=== PATIENT | male | born 1930 | race Caucasian/White ===

== ENCOUNTER 2016-07-19 19:44 | Emergency (ER) | payer OTHER ==
[2016-07-19] MEDS ORDERED: SILVER NITRATE APPLICATOR 1 APPL TP ONE (20:00)
[2016-07-19] MEDS ORDERED: OXYMETAZOLINE 30 ML NASAL SPRAY ONE (20:08)
[2016-07-19] MEDS ORDERED: COCAINE HCL 4% 4 ML BTL TP ONE ×2 (20:08→20:13)
[2016-07-19] MEDS ORDERED: OXYMETAZOLINE 30 ML NASAL SPRAY EACHNARE ONE (20:13)
--- NOTE | 2016-07-19 20:17 | EDPHY ---
H & P Time Seen by Provider: 07/19/16 19:56 HPI/ROS: Chief complaint. Nosebleed HPI. 85-year-old male with recurrent nose bleed. He had been having bleeding off and on for about 2 months. He had cauterization by ENT 2 days ago. Bleeding again started just prior to arrival. No trauma. Bleeding is again from the right nose which had been cauterized. Otherwise no chest pain or shortness of breath. Patient is not on blood thinners. He had been taking aspirin but has not taken aspirin now for several days. ROS Constitutional. no fever/chills, no weakness Eyes. no problems with vision ENT. Right nose bleed Cardiovascular. no chest pain Respiratory. no shortness of breath, no cough Abdominal. no abdominal pain, no nausea/vomiting, no diarrhea . no problems urinating MS. no calf pain/swelling, no neck/back pain, no joint pain Skin. no rash Lymph. no swollen glands Neuro. no headache, no dizziness, no difficulty walking or with speech Past Medical/Surgical History: Cholesterol, glaucoma Social History: , nonsmoker, no alcohol Smoking Status: Former smoker Physical Exam: General Appearance: Alert well-developed male actively bleeding moderate distress. Vital signs are stable Eyes: Pupils equal and round no pallor or injection. ENT, active bleeding from right side of nose. Really minimal bleeding down the posterior pharynx . No bleeding from the left side Respiratory: There are no retractions, lungs are clear to auscultation. Cardiovascular: Regular rate and rhythm. Gastrointestinal: Abdomen is soft and nontender, no masses, bowel sounds normal. Neurological: Awake and alert, sensory and motor exams grossly normal. Skin: Warm and dry, no rashes. Musculoskeletal: Neck is supple nontender. Extremities symmetrical, full range of motion. Psychiatric: Patient is oriented X 3, there is no agitation. Constitutional: Initial Vital Signs Temperature (C) 36.4 C 07/19/16 19:51 Heart Rate 75 07/19/16 19:51 Respiratory Rate 18 07/19/16 19:51 Blood Pressure 192/91 H 07/19/16 19:51 O2 Sat (%) 96 07/19/16 19:51 O2 Delivery Mode Room Air Allergies/Adverse Reactions: No Known Allergies Allergy (Verified 10/25/15 09:19) Home Medications: Medication Instructions Recorded Vitorin 08/13/09 Chlorthalidone 25 mg 10/24/15 Fish Oil 10/24/15 Lansoprazole 30 mg 10/24/15 Durezol 07/19/16 Ketorolac 0.5% 07/19/16 Medical Decision Making Procedures: Clots were cleared from the nose with patient blowing. 2 sprays of Afrin nose spray to each nostril. The right nose is packed with cocaine solution soaked on cotton ball. Cotton ball was removed after 15 minutes. Bleeding resumes. I am unable to see source of the bleeding. A 4.5 cm rhino rocket is inserted and inflated with 3 males of saline. There is still blood dribbling from the right nares. IV normal saline. Fentanyl for pain. ED Course/Re-evaluation: On re-evaluation the patient has accidentally removed the rhino rocket with rubbing his nose. It is replaced with a 5.5 cm rhino rocket and inflated with 5 cc. Again the patient rubs the rhino rocket out. I replaced with a 7.5 cm rhino rocket and inflated it with 9 mls of saline. It is taped above his nose so he can't accidentally rub it out. He is given fentanyl 50 mcg for pain. Re-evaluation 10:45 p.m.--minimal bleeding at this point the occasional bruising. No blood from left nostril. No blood from the back of his throat I have discussed with patient and his whether they feel that she he can go home tonight. They [place] by the hospital I did consult and discussed case with ENT PA who recommends the longer rhino rocket and 10 mL of saline which I have now done Recheck again at 11:05 p.m.. There is no bleeding now. Patient and his were comfortable going home. We discussed treatment plan, criteria for return, importance of follow-up on Thursday morning. They expressed understanding and agreement Differential Diagnosis: I considered anterior versus posterior epistaxis. The patient had cauterization 2 days ago. I do not see a septal hematoma. It appears that the bleeding is anterior as a long 7.5 cm rhino rocket has controlled the bleeding. He no longer has any bleeding down the back of his throat or through the left nostril. There is no respiratory difficulty. - Data Points Laboratory Results: Laboratory Results 07/19/16 20:45 07/19/16 20:45 07/19/16 07/19/16 07/19/16 20:45 20:45 20:45 WBC 8.82 10^3/uL 10^3/uL (3.80-9.50) RBC 4.83 10^6/uL 10^6/uL (4.40-6.38) Hgb 14.8 g/dL g/dL (13.7-17.5) Hct 44.1 % % (40.0-51.0) MCV 91.3 fL fL (81.5-99.8) MCH 30.6 pg pg (27.9-34.1) MCHC 33.6 g/dL g/dL (32.4-36.7) RDW 13.0 % % (11.5-15.2) Plt Count 218 10^3/uL 10^3/uL (150-400) MPV 9.4 fL fL (8.7-11.7) Neut % (Auto) 64.2 % % (39.3-74.2) Lymph % (Auto) 22.0 % % (15.0-45.0) Nelson % (Auto) 11.2 % % (4.5-13.0) Eos % (Auto) 1.9 % % (0.6-7.6) Baso % (Auto) 0.2 % L % (0.3-1.7) Nucleat RBC Rel Count 0.0 % % (0.0-0.2) Absolute Neuts (auto) 5.66 10^3/uL 10^3/uL (1.70-6.50) Absolute Lymphs (auto) 1.94 10^3/uL 10^3/uL (1.00-3.00) Absolute Monos (auto) 0.99 10^3/uL H 10^3/uL (0.30-0.80) Absolute Eos (auto) 0.17 10^3/uL 10^3/uL (0.03-0.40) Absolute Basos (auto) 0.02 10^3/uL 10^3/uL (0.02-0.10) Absolute Nucleated RBC 0.00 10^3/uL 10^3/uL (0-0.01) Immature Gran % 0.5 % % (0.0-1.1) Immature Gran # 0.04 10^3/uL 10^3/uL (0.00-0.10) PT 14.0 SEC SEC (12.0-15.0) INR 1.09 (0.83-1.16) APTT 23.5 SEC SEC (23.0-38.0) Sodium 139 mEq/L mEq/L (134-144) Potassium 4.3 mEq/L mEq/L (3.5-5.2) Chloride 102 mEq/L mEq/L (97-110) Carbon Dioxide 28 mEq/l mEq/l (22-31) Anion Gap 9 mEq/L mEq/L (8-16) BUN 20 mg/dL mg/dL (7-23) Creatinine 1.0 mg/dL mg/dL (0.7-1.3) Estimated GFR > 60 Glucose 110 mg/dL H mg/dL (70-100) Calcium 9.4 mg/dL mg/dL (8.5-10.4) Medications Given: Discontinued Medications Cocaine HCl (Cocaine Hcl) 1 glynn TP EDNOW ONE Stop: 07/19/16 20:14 Last Admin: 07/19/16 20:15 Dose: 1 applic Fentanyl (Sublimaze) 100 mcg IVP EDNOW ONE Stop: 07/19/16 20:34 Last Admin: 07/19/16 20:45 Dose: 100 mcg Fentanyl (Sublimaze) 50 mcg IVP EDNOW ONE Stop: 07/19/16 22:52 Last Admin: 07/19/16 22:30 Dose: 50 mcg Sodium Chloride (Ns) 1,000 mls @ 0 mls/hr IV ONCE ONE PRN Reason: Wide Open Stop: 07/19/16 20:34 Last Admin: 07/19/16 20:45 Dose: 1,000 mls Oxymetazoline HCl (Afrin Nasal [place]) 2 sprays EACHNARE EDNOW ONE Stop: 07/19/16 20:14 Last Admin: 07/19/16 20:14 Dose: 2 spray Departure - Departure Disposition: Home, Routine, Self-Care Clinical Impression: Acute anterior epistaxis Condition: Good Instructions: Nosebleed (ED) Additional Instructions: Easy activity and caution with bending over as this increases pressure on your nose and may cause it began bleeding again. If bleeding starts again use the clipped that we are giving you to clip on your nose. Return for uncontrolled bleeding. Call Dr. Chavez is office on Thursday morning for re-evaluation and leave the packing in your nose until you see Dr. Chavez. Do not take aspirin until after seeing Dr. Chavez. Referrals: Mitchell Campos MD [Primary Care Provider] - As per Instructions Alison Chavez MD [Medical Doctor] - 1-2 days without fail
[2016-07-19] MEDS ORDERED: NS 1,000 ML IV ONE (20:33)
[2016-07-19] MEDS ORDERED: fentaNYL 100 MCG/2 ML INJ IVP ONE ×2 (20:33→22:51)
[2016-07-19 21:04] LABS: % IMMATURE GRANULYOCYTES 0.5 % (0.0-1.1); ABSOLUTE IMMATURE GRANULOCYTES 0.04 10^3/uL (0.00-0.10); ADD DIFF? NO; ADD MORPH? NO; ADD SCAN? NO; ATYPICAL LYMPHOCYTE FLAG 0 (0-99); FRAGMENT RBC FLAG 0 (0-99); HEMATOCRIT 44.1 % (40.0-51.0); HEMOGLOBIN 14.8 g/dL (13.7-17.5); LEFT SHIFT FLG 0 (0-99); LIPEMIA HEMOLYSIS FLAG 80 (0-99); MEAN CELL HEMOGLOBIN 30.6 pg (27.9-34.1); MEAN CELL HEMOGLOBIN CONCENTR. 33.6 g/dL (32.4-36.7); MEAN CELL VOLUME 91.3 fL (81.5-99.8); MEAN PLATELET VOLUME 9.4 fL (8.7-11.7); PLATELET CLUMPS FLAG 0 (0-99); PLATELET COUNT 218 10^3/uL (150-400); RED BLOOD CELL COUNT 4.83 10^6/uL (4.40-6.38)
[2016-07-19 21:09] LABS: ANION GAP 9 mEq/L (8-16); CALCIUM 9.4 mg/dL (8.5-10.4); CARBON DIOXIDE 28 mEq/l (22-31); CHLORIDE 102 mEq/L (97-110); GLOMERULAR FILTRATION RATE > 60; GLUCOSE 110 mg/dL (70-100); POTASSIUM 4.3 mEq/L (3.5-5.2); SODIUM 139 mEq/L (134-144)
[2016-07-19 21:11] LABS: APTT 23.5 SEC (23.0-38.0); INR 1.09 (0.83-1.16)
[2016-07-19 22:12] VITALS: O2SAT 91
[2016-07-19] MEDS ORDERED: fentaNYL 100 MCG/2 ML INJ ONE (22:28)
[2016-07-19 23:59] VITALS: BP 151/102; PULSE 66; RESP 16; TEMP 98.2
== END 2016-07-20 00:01 | disposition home or self-care (01) ==
PROC: 2Y41X5Z Packing of Nasal Region using Packing Material (ICD-10-PCS; principal; 2016-07-19)
DX: R04.0 Epistaxis (principal); Z87.891 Personal history of nicotine dependence
CPT/HCPCS: 30903; 96374; 96376; 99284; J3010

== ENCOUNTER 2016-12-05 18:13 | Observation (INO) | payer OTHER ==
--- NOTE | 2016-12-05 18:45 | EDPHY ---
HPI/HX/ROS/PE/MDM Narrative: CHIEF COMPLAINT: AMS HPI: The patient is an 86 y/o male arriving with his at the referral of his PCP for evaluation of acute onset altered mental status this morning around 11:00, about 8 hours ago. He is unable to describe what happened while he was at the office this morning beyond saying he did not "feel well." It sounds like his office coworkers noticed he was acting odd and drove him home. His PCP, Dr. 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 His says he was confused this afternoon and had difficulty speaking, but since returning to his ED room from CT his says he is completely back to normal. He denies acute pain, fever, cough. No cardiac disease history. REVIEW OF SYSTEMS: Aside from elements discussed in the HPI, a comprehensive 10-point review of systems was reviewed and is negative. PMH: Lumbar back pain, cataract surgery 11/18/16 SOCIAL HISTORY: at bedside. 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 PCP: Dr. Campos PHYSICAL EXAM: General:Patient is alert, in no acute distress. ENT:Eyes are normal to inspection. ENT inspection normal. Neck: Normal inspection. Full range of motion. Respiratory:No respiratory distress. Breath sounds normal bilaterally. Cardiovascular: Regular rate and rhythm. Strong peripheral pulses. Normal cap refill. Abdomen:The abdomen is nontender to palpation. There are no peritoneal signs. There are normal bowel sounds. Back: Normal to inspection. No tenderness to palpation. Skin: Normal color. No rash. Warm and dry. Extremities: Normal appearance. Full range of motion. Neuro: Oriented x3. Normal motor function. Normal sensory function. ED Course: IV established. Labs drawn. Head CT and EKG ordered. The 12 lead EKG was interpreted by myself. See hard copy and/or "tracemaster" electronic copy for interpretation. CT Head: 8mm subarachnoid hemorrhage, no corpus callosum. 1932: Consulted with Dr. Campos, neurosurgeon. He will consult during patient's admission. 1936: Spoke with LUIGI West for Dr. Campos, patient's PCP. She will admit patient. - Data Points Imaging: Discussed imaging studies w/ crew caller Radiologist, I viewed and interpreted images myself Laboratory Results: Laboratory Results 12/05/16 19:02 12/05/16 12/05/16 19:02 19:02 WBC 6.63 10^3/uL 10^3/uL (3.80-9.50) RBC 4.78 10^6/uL 10^6/uL (4.40-6.38) Hgb 14.7 g/dL g/dL (13.7-17.5) Hct 43.4 % % (40.0-51.0) MCV 90.8 fL fL (81.5-99.8) MCH 30.8 pg pg (27.9-34.1) MCHC 33.9 g/dL g/dL (32.4-36.7) RDW 13.8 % % (11.5-15.2) Plt Count 185 10^3/uL 10^3/uL (150-400) MPV 9.4 fL fL (8.7-11.7) Neut % (Auto) 54.8 % % (39.3-74.2) Lymph % (Auto) 30.5 % % (15.0-45.0) Baker % (Auto) 12.8 % % (4.5-13.0) Eos % (Auto) 1.2 % % (0.6-7.6) Baso % (Auto) 0.2 % L % (0.3-1.7) Nucleat RBC Rel Count 0.0 % % (0.0-0.2) Absolute Neuts (auto) 3.64 10^3/uL 10^3/uL (1.70-6.50) Absolute Lymphs (auto) 2.02 10^3/uL 10^3/uL (1.00-3.00) Absolute Monos (auto) 0.85 10^3/uL H 10^3/uL (0.30-0.80) Absolute Eos (auto) 0.08 10^3/uL 10^3/uL (0.03-0.40) Absolute Basos (auto) 0.01 10^3/uL L 10^3/uL (0.02-0.10) Absolute Nucleated RBC 0.00 10^3/uL 10^3/uL (0-0.01) Immature Gran % 0.5 % % (0.0-1.1) Immature Gran # 0.03 10^3/uL 10^3/uL (0.00-0.10) Sodium Pending Potassium Pending Chloride Pending Carbon Dioxide Pending Anion Gap Pending BUN Pending Creatinine Pending Estimated GFR Pending Glucose Pending Calcium Pending Total Bilirubin Pending Conjugated Bilirubin Pending Unconjugated Bilirubin Pending AST Pending ALT Pending Alkaline Phosphatase Pending Troponin I Pending Total Protein Pending Albumin Pending General Time Seen by Provider: 12/05/16 18:40 Initial Vital Signs: Initial Vital Signs Temperature (C) 36.9 C 12/05/16 18:27 Heart Rate 61 12/05/16 18:27 Respiratory Rate 15 12/05/16 18:27 Blood Pressure 167/64 H 12/05/16 18:27 O2 Sat (%) 94 12/05/16 18:27 O2 Delivery Mode Room Air Allergies/Adverse Reactions: No Known Allergies Allergy (Verified 10/25/15 09:19) Home Medications: Medication Instructions Recorded Aspirin EC [Aspirin EC 325 mg (*)] 325 mg PO DAILY 12/05/16 Cholecalciferol Vit D3 [Vitamin D3 4,000 units PO DAILY 12/05/16 (*)] Difluprednate [Durezol] 1 drop RTEYE BID 12/05/16 Dorzolamide 2% [Trusopt 2% (*)] 1 drops RTEYE BID 12/05/16 Ezetimibe/Simvastatin [Vytorin 1 each PO DAILY 12/05/16 10-40 mg Tablet] Ketorolac Tromethamine 1 drop RTEYE QID 12/05/16 Multivitamins [Multivitamin (*)] 1 each PO DAILY 12/05/16 [place]-3 Fatty Acids [Fish Oil 1000 1,200 mg PO TID 12/05/16 mg (*)] Departure - Departure Disposition: [facility] Clinical Impression: Subarachnoid hemorrhage Altered mental status Qualifiers: Altered mental status type: unspecified Qualified Code(s): R41.82 - Altered mental status, unspecified Condition: Fair Report Scribed for: Raymon Thomas Report Scribed by: Rosemary Donovan Date of Report: 12/05/16 Time of Report: 18:45
[2016-12-05 19:13] LABS: % IMMATURE GRANULYOCYTES 0.5 % (0.0-1.1); ABSOLUTE IMMATURE GRANULOCYTES 0.03 10^3/uL (0.00-0.10); ADD DIFF? NO; ADD MORPH? NO; ADD SCAN? NO; ATYPICAL LYMPHOCYTE FLAG 20 (0-99); FRAGMENT RBC FLAG 0 (0-99); HEMATOCRIT 43.4 % (40.0-51.0); HEMOGLOBIN 14.7 g/dL (13.7-17.5); LEFT SHIFT FLG 0 (0-99); LIPEMIA HEMOLYSIS FLAG 90 (0-99); MEAN CELL HEMOGLOBIN 30.8 pg (27.9-34.1); MEAN CELL HEMOGLOBIN CONCENTR. 33.9 g/dL (32.4-36.7); MEAN CELL VOLUME 90.8 fL (81.5-99.8); MEAN PLATELET VOLUME 9.4 fL (8.7-11.7); PLATELET CLUMPS FLAG 0 (0-99); PLATELET COUNT 185 10^3/uL (150-400); RED BLOOD CELL COUNT 4.78 10^6/uL (4.40-6.38); RED CELL DISTRIBUTION WIDTH 13.8 % (11.5-15.2)
--- NOTE | 2016-12-05 19:25 | CPEKG ---
Heart Rate: 53 RR Interval: 1132 P-R Interval: 236 QRSD Interval: 80 QT Interval: 452 QTC Interval: 425 P [place]: 16 QRS [place]: 45 T Wave [place]: 49 EKG Severity - ABNORMAL ECG - EKG Impression: SINUS RHYTHM EKG Impression: FIRST DEGREE AV BLOCK EKG Impression: CONSIDER LEFT VENTRICULAR HYPERTROPHY Electronically Signed By: Erasmo Fleming 05-Dec-2016 20:35:31
[2016-12-05 19:30] LABS: ALANINE AMINOTRANSFERASE 34 IU/L (21-72); ALBUMIN 3.7 g/dL (3.5-5.0); ALKALINE PHOSPHATASE 74 IU/L (38-126); ANION GAP 7 mEq/L (8-16); ASPARTATE AMINOTRANSFERASE 30 IU/L (17-59); BILIRUBIN,TOTAL 1.1 mg/dL (0.1-1.4); BILIRUBIN-CONJUGATED 0.2 mg/dL (0.0-0.5); BILIRUBIN-UNCONJUGATED 0.9 mg/dL (0.0-1.1); CALCIUM 9.2 mg/dL (8.5-10.4); CARBON DIOXIDE 27 mEq/l (22-31); CHLORIDE 98 mEq/L (97-110); GLOMERULAR FILTRATION RATE > 60; GLUCOSE 86 mg/dL (70-100); POTASSIUM 4.1 mEq/L (3.5-5.2); SODIUM 132 mEq/L (134-144); TOTAL PROTEIN 6.3 g/dL (6.3-8.2)
[2016-12-05 20:50] VITALS: O2SAT 95
--- NOTE | 2016-12-05 21:11 | GCON ---
[f rep st] CONSULTATION DATE OF CONSULTATION: 12/05/2016 CONSULTING SERVICE: Emergency Medicine. REASON FOR CONSULT: Altered mental status with a right thalamic hyperdensity. 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 He was sent to the [facility], and a noncontrast head CT demonstrated congenital appearing ventriculomegaly and a well-circ umscribed 8 mm hyperdensity in the right thalamus. I evaluated the patient at the bedside with [facility], Dr. Hooper, and he stated that the patient had already improved neurologica lly and from a mental status standpoint, and he plans to admit overnight for observation. PAST MEDICAL HISTORY: Per HPI. Cervical and lumbar stenosis with low back pain, cataract surgery in October of 2016. ALLERGIES: No known drug allergies. HOME MEDICATIONS: Vytorin, fish oil, PPI. 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 Denies alcohol, tobacco , or drug abuse. FAMILY HISTORY: No known history of brain disorder. REVIEW OF SYSTEMS: Ten points were reviewed and negative other than mentioned in HPI. PHYSICAL EXAMINATION: VITALS: Blood pressure 193/80 4/84, heart rate 54, respiratory rate 14, satur ation is 96% on room air, temperature is normal at 37.1 degrees Celsius. LABORATORIES: White blood cell count 6.6, hemoglobin 14.7, platelet count 185. Sodium 132, potassiu m 4.1, BUN and creatinine 15 and 1.0, glucose 86. Calcium normal. LFTs normal. NEUROLOGIC EXAMINATION: Awake, alert, oriented x3. Pleasant and jovial. Fluent normal speech. Nor mal cranial nerves. Nonfocal neurologically with 5/5 strength in upper and lower extremities without a pronator drift. Normal sensory and reflex exam. No cerebellar findings. Good hfjcin-hp-sezp erick aterally. Gait is deferred. 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 There is no transependymal flow. The bra in is midline. There is [id number] global volume loss of the cerebrum. 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 The patient does not have any baseline for comparison brain imaging. 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 His mental status has since improved significantly altho ugh he is not entirely back to baseline. This was somewhat spontaneous. 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 I do not think that either finding is acute. Unfortunately, we have no baseline, but given th e fact the patient has a very reassuring nonfocal and improved neurologic exam, I do not feel strongl y about any repeat imaging at this time. An MRI would help us understand whether or not this is an a cute or chronic finding, but I do not feel strongly about this either and will leave it at the discre tion of the patient's primary doctor. I did discuss this with him. For now, I have nothing to offer , this is not a neurosurgical case. Please call me if any questions, but I am signing off. /[id number]/MODL
--- NOTE | 2016-12-05 21:16 | GHP ---
[f rep st] HISTORY AND PHYSICAL DATE OF ADMISSION: 12/05/2016 REASON FOR ADMISSION: Confusion. HISTORY: This is an 86-year-old male who up until day of admission was in startling good health. He states he had a bad night the night before. He had difficulty sleeping because of pain in his butto ck due to his known lumbar stenosis. He got a ride home from work early, went to bed, took a nap. H is came home a couple of hours later and woke him up to check on him and found him to be profoun dly confused. She watched him for a couple of hours and his confusion remained. He was brought to [facility] office where he was found to be oriented but not terribly alert. He had difficulty following comma nds. He was sent to the emergency room. Emergency room workup included a CT of the head which demon strated a possible intracerebral hemorrhage and he is being admitted for further observation. Of int erest, he became substantially more oriented after being in the emergency room for a while and his ab ility to follow commands improved dramatically. PAST MEDICAL HISTORY: Significant for a very high coronary calcium score which has been stable; cerv ical as well as lumbar spinal stenosis which has been treated medically. PHYSICAL EXAMINATION: VITAL SIGNS: Blood pressure in my office was normal. However, in the ER his blood pressure went up from 154/72 to 193/84. His pulse was between 54 and 61, oxygen saturation 96% on room air. GENERAL: He was alert, oriented and appropriate. Moved all extremities symmetrically . Had symmetrical strength, although in the office he had trouble following commands with finger-nos e and following commands to do visual field assessment. In the ER, seeing him 3 hours later, he is f ollowing commands readily. He is still a little bit confused and does ask the same question on more than 1 occasion but he is much more conversational. Speech is much quicker. LABS: Review of blood work shows minimal hyponatremia, sodium 132. Kidneys are normal. Liver tests are normal. He is not anemic. He has a normal white blood cell count. IMPRESSION: Transient confusion. This could be a transient ischemic attack versus transient global amnesia. As he is dramatically improving and has known atherosclerosis, will observe him. Because o f his question of hemorrhage, I am very hesitant to even consider further anticoagulation or similar therapy. We will observe closely tonight. If he continues to improve in the morning we may consider sending him home. /[id number]/MODL
[2016-12-05] MEDS: KETOROLAC TROMETHAMINE RTEYE SCH (22:28)
[2016-12-05] MEDS: DORZOLAMIDE 2% OPTH DROPS RTEYE SCH (22:28)
[2016-12-05] MEDS: DIFLUPREDNATE 0.05% RTEYE SCH (22:28)
[2016-12-05] MEDS: OPTH RTEYE SCH ×2 (22:28)
[2016-12-05] MEDS: OMEGA-3 FATTY ACIDS 1,000 MG CAP PO SCH (23:13)
[2016-12-06 01:31] LABS: COLOR YELLOW; LEUKOCYTE ESTERASE,URINE NEGATIVE (NEGATIVE); NITRITE,URINE NEGATIVE (NEGATIVE)
[2016-12-06] MEDS: KETOROLAC TROMETHAMINE RTEYE SCH ×3 (05:26→15:40)
[2016-12-06] MEDS: OPTH RTEYE SCH ×4 (05:26→15:40)
[2016-12-06 07:42] VITALS: PULSE 50; RESP 16; TEMP 97.8
[2016-12-06] MEDS ORDERED: ATORVASTATIN CALCIUM 20 MG TAB PO SCH (09:00)
[2016-12-06] MEDS ORDERED: EZETIMIBE 10 MG TAB PO SCH (09:00)
[2016-12-06] MEDS ORDERED: CHOLECALCIFEROL VIT D3 2,000 UNITS TAB/CAP PO SCH (09:00)
[2016-12-06] MEDS ORDERED: MULTIVITAMINS 1 EACH TAB PO SCH (09:00)
[2016-12-06] MEDS: OMEGA-3 FATTY ACIDS 1,000 MG CAP PO SCH (09:30)
[2016-12-06] MEDS: DORZOLAMIDE 2% OPTH DROPS RTEYE SCH (09:34)
[2016-12-06] MEDS: DIFLUPREDNATE 0.05% RTEYE SCH (09:35)
[2016-12-06] MEDS ORDERED: LISINOPRIL 2.5 MG TAB PO SCH ×2 (11:30→15:30)
[2016-12-06 12:51] VITALS: BP 179/91
--- NOTE | 2016-12-06 15:02 | ASMTCMCOM ---
CM Note CM Note Notes: Pt admitted for possible TIA. Pt is improving and may DC later today with no needs. Date Signed: 12/06/2016 03:02 PM Electronically Signed By:Tricia Guillory LCSW
--- NOTE | 2016-12-06 15:33 | SOAPPROG ---
SOAP Progress Note Assessment/Plan: Assessment:It is unclear whether this was a thalamic bleed vs TIA vs TGA. The symptoms have resolved and he is back to baseline. His blood pressure has been a bit higher in the hospital than usual. Plan: Will send home with close outpatient follow up. Will hold asa for now and start lisinopril for HBP. He will see me in the office on , sooner if he has increase in symptoms. Discussed witih patient and . 12/06/16 15:31 Subjective: Doing well. He feels that he is back to normal. Alert and appropriate. Ambulating normally. Objective: Vital Signs Temp Pulse Resp BP Pulse Ox 97.8 F 50 L 16 179/91 H 95 12/06/16 07:37 12/06/16 07:37 12/06/16 07:37 12/06/16 12:48 12/06/16 07:37 12/05/16 12/06/16 12/07/16 05:59 05:59 05:59 Intake Total 400 Balance 400 COR RRR. Lungs clear. Alert and appropriate. Ambulating normally. EOM normal Finger to nose normal. ICD10 Worksheet Patient Problems: Problems Problem Status Onset Altered mental status Acute Subarachnoid hemorrhage Acute
--- NOTE | 2016-12-06 21:34 | GDS ---
[f rep st] DISCHARGE SUMMARY ADMISSION DIAGNOSIS: Thalamic bleed versus congenital vascular abnormality. DISCHARGE DIAGNOSIS: Thalamic bleed versus congenital vascular abnormality. PROCEDURES: CT of the head without contrast x2. Initiation of lisinopril for hypertension. ADDITIONAL DIAGNOSIS: Elevated blood pressure. HOSPITAL COURSE: Patient was admitted with confusion. His confusion substantially improved between 5 o'clock when I saw him in the office and 8 o'clock when I saw him in the emergency room. CT scan w as obtained. Neurosurgical consultation was obtained. It was felt that he would not be a candidate for surgical intervention and that the neurosurgeon thought it was likely this was not a hemorrhage b ut rather a nonhemorrhagic abnormality in the brain. We discussed options with the patient. We obse rved him overnight. He did well although his blood pressure became elevated. We started him on sacha nopril and titrated the dose up to 5 mg daily. He tolerated this well without developing a cough. This afternoon, he is neurologically intact. Vital signs show persistent mild hypertension. Heart h as regular rate and rhythm. Lungs are clear. He walks comfortably and safely. He is alert, oriente d, appropriate with normal speech. Normal muscular exam. PLAN: We will discharge him to home. We will stop his aspirin. Will initiate lisinopril 5 mg daily . Will have close followup. He will call immediately if he has any change in his symptoms. This wa s discussed with the patient and his . He will otherwise follow up with me on Thursday. /[id number]/MODL
== END 2016-12-06 16:13 | disposition home or self-care (01) ==
LOC: F3N 20:43
PROVIDERS: ADMIT Internal Medicine; ATTEND Internal Medicine
DX: I61.8 Other nontraumatic intracerebral hemorrhage (principal); R94.02 Abnormal brain scan; M48.06 Spinal stenosis, lumbar region; I10 Essential (primary) hypertension
CPT/HCPCS: 70450; 93005; G0378

== ENCOUNTER 2018-01-04 14:54 | Inpatient (IN) | payer OTHER ==
--- NOTE | 2018-01-04 15:15 | EDPHY ---
HPI/HX/ROS/PE/MDM Narrative: CHIEF COMPLAINT: Bradycardia. HPI: This patient is an 87 year old male with history of hypertension and hyperlipidemia. He presents with his via private vehicle at the request of his primary care provider. This morning, he noted fatigue and some difficulty with minor exertion including going up the stairs. On evaluation earlier today, his PCP noted third degree AV block on EKG and referred the patient here to the emergency department for further evaluation and admission. The patient states he is feeling alright currently. He denies any chest discomfort. He denies fever , lightheadedness, dizziness, or headache. Additionally, the patient's at bedside reports he has had some word- finding difficulty recently. The patient states he had subarachnoid hemorrhage last year with similar symptoms. No numbness or paresthesias in his extremities. Currently, he is mentating normally. REVIEW OF SYSTEMS: Aside from elements discussed in the HPI, a comprehensive 10-point review of systems was reviewed and is negative. PMH: Hypertension. Hyperlipidemia. SOCIAL HISTORY: . at bedside. 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 PHYSICAL EXAM: General:Patient is alert, in no acute distress. ENT:Eyes are normal to inspection. ENT inspection normal. Neck: Normal inspection. Full range of motion. Respiratory:No respiratory distress. Breath sounds normal bilaterally. Cardiovascular: Bradycardic. Strong peripheral pulses. Normal cap refill. Abdomen:The abdomen is nontender to palpation. There are no peritoneal signs. There are normal bowel sounds. Back: Normal to inspection. No tenderness to palpation. Skin: Normal color. No rash. Warm and dry. Extremities: Normal appearance. Full range of motion. Neuro: Oriented x3. Normal motor function. Normal sensory function. ED Course: 87 y/o male presents at the request of his primary care provider for evaluation of bradycardia and third degree heart block noted on EKG. Plan to consult with cardiology and admit patient for further workup. Plan for EKG, labs including CBC, chemistries, troponin, coag panel. Given patient's report of word-finding difficulty and history of prior subarachnoid bleed, plan for CT head. EKG was ordered and interpreted by myself. Please see [employer] system for official reading. Third degree AV block. Bradycardia. POC Troponin negative at 0.04. Labs otherwise largely unremarkable. 15:17 Dr. Knapp, insert cutter, at bedside. Plan to admit as planned. Patient will have pacemaker evaluation with likely placement tomorrow morning. 15:44 Spoke with hospitalist service. Dr. Rose accepts admission for bradycardia, third degree AV block. 16:[address] Trevizo, radiologist. CT head negative for acute processes. MDM: This patient presents with third-degree heart block but is thankfully stable for the moment from a hemodynamic perspective. He will require pacemaker implantation and admission. - Data Points Imaging Results: Imaging Impressions Head CT 01/04/18 15:22 Impression: 1. Elderly brain, with atrophy and probable white matter small vessel disease. 2. Nothing acute is identified. 3. See above report for additional findings. Results called and discussed with Raymon Thomas M.D., on January 04, 2018 at 1611. Imaging: Discussed imaging studies w/ rn call center Radiologist Laboratory Results: Laboratory Results 01/04/18 15:10 01/04/18 15:10 01/04/18 01/04/18 01/04/18 15:15 15:10 15:10 WBC RBC Hgb Hct MCV MCH MCHC RDW Plt Count MPV Neut % (Auto) Lymph % (Auto) [place] % (Auto) Eos % (Auto) Baso % (Auto) Nucleat RBC Rel Count Absolute Neuts (auto) Absolute Lymphs (auto) Absolute Monos (auto) Absolute Eos (auto) Absolute Basos (auto) Absolute Nucleated RBC Immature Gran % Immature Gran # PT 14.4 SEC SEC (12.0-15.0) INR 1.10 (0.83-1.16) APTT 25.2 SEC SEC (23.0-38.0) Sodium 138 mEq/L mEq/L (135-145) Potassium 4.4 mEq/L mEq/L (3.3-5.0) Chloride 102 mEq/L mEq/L (97-110) Carbon Dioxide 28 mEq/l mEq/l (22-31) Anion Gap 8 mEq/L mEq/L (6-14) BUN 32 mg/dL H mg/dL (7-23) Creatinine 1.1 mg/dL mg/dL (0.7-1.3) Estimated GFR > 60 Glucose 76 mg/dL mg/dL (70-100) Calcium 9.8 mg/dL mg/dL (8.5-10.4) POC Troponin I 0.04 ng/mL ng/mL (0.00-0.08) 01/04/18 15:10 WBC 8.26 10^3/uL 10^3/uL (3.80-9.50) RBC 4.66 10^6/uL 10^6/uL (4.40-6.38) Hgb 14.7 g/dL g/dL (13.7-17.5) Hct 44.3 % % (40.0-51.0) MCV 95.1 fL fL (81.5-99.8) MCH 31.5 pg pg (27.9-34.1) MCHC 33.2 g/dL g/dL (32.4-36.7) RDW 13.2 % % (11.5-15.2) Plt Count 206 10^3/uL 10^3/uL (150-400) MPV 9.6 fL fL (8.7-11.7) Neut % (Auto) 62.4 % % (39.3-74.2) Lymph % (Auto) 22.5 % % (15.0-45.0) [place] % (Auto) 12.7 % % (4.5-13.0) Eos % (Auto) 1.9 % % (0.6-7.6) Baso % (Auto) 0.1 % L % (0.3-1.7) Nucleat RBC Rel Count 0.0 % % (0.0-0.2) Absolute Neuts (auto) 5.15 10^3/uL 10^3/uL (1.70-6.50) Absolute Lymphs (auto) 1.86 10^3/uL 10^3/uL (1.00-3.00) Absolute Monos (auto) 1.05 10^3/uL H 10^3/uL (0.30-0.80) Absolute Eos (auto) 0.16 10^3/uL 10^3/uL (0.03-0.40) Absolute Basos (auto) 0.01 10^3/uL L 10^3/uL (0.02-0.10) Absolute Nucleated RBC 0.00 10^3/uL 10^3/uL (0-0.01) Immature Gran % 0.4 % % (0.0-1.1) Immature Gran # 0.03 10^3/uL 10^3/uL (0.00-0.10) PT INR APTT Sodium Potassium Chloride Carbon Dioxide Anion Gap BUN Creatinine Estimated GFR Glucose Calcium POC Troponin I Point of Care Test Results: Chemistry 01/04/18 15:15 POC Troponin I 0.04 ng/mL ng/mL (0.00-0.08) General Time Seen by Provider: 01/04/18 15:09 Initial Vital Signs: Initial Vital Signs Temperature (C) 36.9 C 01/04/18 15:00 Heart Rate 41 L 01/04/18 15:00 Respiratory Rate 18 01/04/18 15:00 Blood Pressure 165/76 H 01/04/18 15:00 O2 Sat (%) 97 01/04/18 15:00 O2 Delivery Mode Room Air Allergies/Adverse Reactions: No Known Allergies Allergy (Verified 01/04/18 14:58) Home Medications: Medication Instructions Recorded Ezetimibe/Simvastatin [Vytorin 1 each PO DAILY@18 12/05/16 10-40 mg Tablet] Dorzolamide 2% [Trusopt 2% (*)] 1 drops RTEYE BID opht.btl 12/06/16 Cholecalciferol Vit D3 [Vitamin D3 2,000 units PO SUTUTHSA 01/04/18 (*)] Cholecalciferol Vit D3 [Vitamin D3 4,000 units PO MWF 01/04/18 2000 units tab (OTC)] Ferrous Sulfate [Ferrous Sulf 325 325 mg PO DAILY@18 01/04/18 MG (*)] Herbals/Supplements -Info Only 1 ea PO DAILY 01/04/18 Lansoprazole [Prevacid] 15 mg PO DAILY 01/04/18 Lisinopril [Lisinopril] 20 mg PO DAILY 01/04/18 Multivitamins [Multivitamin (*)] 1 each PO DAILY 01/04/18 Crozier-3 Fatty Acids [Fish Oil 1000 2,000 mg PO DAILY 01/04/18 mg (*)] Departure - Departure Disposition: [facility] Acute Clinical Impression: Third degree heart block Condition: Fair Report Scribed for: Raymon Thomas Report Scribed by: Bri Hammond Date of Report: 01/04/18 Time of Report: 16:02 Physician Review and Approval Statement: Portions of this note were transcribed by an ED scribe. I personally performed the history, physical exam, and medical decision making; and confirm the accuracy of the information in the transcribed note.
[2018-01-04 15:22] LABS: PLATELET COUNT 206 10^3/uL (150-400)
[2018-01-04 15:41] LABS: INR 1.1 (0.83-1.16); PROTIME(PATIENT) 14.4 SEC (12.0-15.0)
--- NOTE | 2018-01-04 16:02 | PDCONSULT ---
Monorail Operator Note: CC: fatigue Requesting physician: ER Team Indication for consultation: Third degree AVB HPI: Patient is an 87 y/o male with history of HTN (on therapy) and HLP (on statins) , but no CAD or DM, who presents to the ER via private transport after being seen by PCP with slow heart rates. In the PCP office, with complaints of fatigue, and ECG was obtained, which revealed third degree AVB. Heart rates of 40 bpm were noted. Blood pressure was hypertensive (>160 mm Hg systolic) with normal mental status. was present with the patient in the office, and reportedly was the one who brought him to the ER. No cardiovascular complaints of chest pains or pressure. No PND or orthopnea. No dizziness or lightheadedness have been noted. The patient has noted fatigue and some shortness of breath (atypical for the patient). Regular exercise has continued , but he has noted some limitations with activity the past week. Some degree of fatigue has been noted for the past 7-10 days. No fevers or chills. No symptoms were reported while the patient was in the ER today. Remainder of the 12 point review of systems was unremarkable PMHx: (1) HTN (2) HLP (3) No CAD (4) No DM SHx: non drinker, ex smoker (quit in the ). ( in ER). FHx: non contributory Allergies: NKDA Medications (1) Lisinopril (2) Vytorin (3) Eye drops Vitals: Afebrile, HF: 38 bpm, BP: 180/104 mm Hg, RR: 12, chest pain: 0/10 GEN: awake and alert in no acute distress HEENT: NCAT with PERRLA Neck: no JVD Lungs: CTA bilaterally without c/r/r COR: Bradycardic without m/r/g, no PMI displacement ABD: soft EXT: no C/C/E with 2+ DP/PT/RAD pulses NEURO: no focal deficits were noted Labs: No troponin elevation noted Electrolytes were grossly normal Normal CBC ECG: third degree AVB with rates of 38 bpm A: Patient is an 87 y/o male with HTN and HLP with third degree AVB on ECG. No haemodynamic compromise with current heart rates has been noted. Patient ate both a breakfast and lunch today. Responses to all questions from patient were clear and complete. Discussion about PPM was started with PCP, and continued with cardiology in the ER today. P: PPM implant to be scheduled for tomorrow morning. Would continue temp transcutaneous pacer as needed. Would maintain therapy on statins and ACEi therapy for HTN.
[2018-01-04] MEDS ORDERED: ACETAMINOPHEN 325 MG TAB PO PRN (16:38)
[2018-01-04] MEDS ORDERED: ONDANSETRON DISINTEGRATING 4 MG TAB PO PRN (16:38)
[2018-01-04] MEDS ORDERED: ONDANSETRON 4 MG/2 ML VIAL IVP PRN (16:38)
--- NOTE | 2018-01-04 17:41 | GHP ---
DATE OF ADMISSION: 01/04/2018 ADMISSION DIAGNOSIS: Third-degree heart block. HISTORY OF PRESENTING ILLNESS: This is an 87-year-old male who is seen in the office today complaini ng of worsened shortness of breath, decreased exercise tolerance and trouble word finding and general ized weakness over the past 10 days, especially. He is accompanied by his who also endorses the se worsened symptoms. In the office he was found to have a slowed heart rate in the upper 30s to low 40s. EKG in the office showed a third-degree heart block. I called over to Cardiology, who recommen ded that he be admitted or sent to the emergency department for further evaluation. On admission, Ca rdiology and the on-call emergency room doctor also found the patient was in third-degree heart block and he was seen by Cardiology who is recommending a pacer placement in the morning. The patient does have a history of a subarachnoid hemorrhage. PAST MEDICAL HISTORY: Includes sciatica, lumbar spinal stenosis. Reflux esophagitis. Elevated chris nary calcium score. Diastolic murmur. Moderate aortic regurgitation. Essential hypertension. ALLERGIES: No known drug allergies. PAST SURGICAL HISTORY: Includes retinal detachment, anal stenosis, broken right finger, left fractur ed ulna and left cataract surgery in 2018. SOCIAL HISTORY: The patient is a former smoker. He is currently . FAMILY MEDICAL HISTORY: Mother with hypertension. Two younger sisters both with hypertension. REVIEW OF SYSTEMS: GENERAL: Denies fevers, chills, headache. Complains of generalized fatigue. HEEN T: Denies acute visual changes, blurry vision, ear pain, sore throat. RESPIRATORY: Denies cough, wh eeze. Endorses decreased exercise tolerance and increased shortness of breath. CARDIOVASCULAR: Denie s chest pain, palpitations, dizziness, lightheadedness. GI: Denies nausea, vomiting, diarrhea, acute change in bowel habits. : Denies urinary burning, but does endorse urinary frequency. MUSCULOSKE LETAL: Denies acute joint stiffness. Complains of chronic low back pain with sciatica bilaterally wh ich is worse over the past couple of weeks. SKIN: Denies itching, rash, hives. NEUROLOGIC: Denies s yncope. Does endorse decreased stability, increased weakness, trouble with memory and word finding. PHYSICAL EXAM: GENERAL: Alert, oriented, in no acute distress. HEAD: Normocephalic, atraumatic. E YES: EOMI, PERRLA. SKIN: Warm and dry without breakdown. HEART: 3/6 diastolic murmur. Bradycardi c, regular rhythm. LUNGS: Rhonchi to bilateral bases, left greater than right. ABDOMEN: Soft, non tender, nondistended. Positive bowel sounds. EXTREMITIES: No peripheral edema. NEUROLOGIC: Alert and oriented. Generally nonfocal neuro exam. PSYCH: Mood and affect were full range. ASSESSMENT AND PLAN: 1. Third-degree heart block, being followed by Cardiology (appreciate assistance.) Plan for pacemak er placement tomorrow morning. Will be n.p.o. at midnight. IV fluids after midnight to maintain hyd ration. We will check labs in the morning. 2. Urinary frequency. We will check urinalysis to rule out urinary tract infection. 3. History of subarachnoid hemorrhage. Given new onset of acute memory changes with trouble word fi nding, we will check a CT of the head noncontrast to rule out acute bleed, though suspect that his me kiran changes are related to decreased cardiac output with a 3rd degree heart block. 4. Acute on chronic lumbago with bilateral sciatica. The patient has been experiencing worsening lo w back pain with bilateral sciatica over the past few weeks. We will obtain MRI of the lumbar spine this evening prior to pacer placement as he will be unable to go for an MRI following the pacemaker p lacement. 5. Elevated coronary artery calcium score. The patient's last CT of his heart was in September of 2017 a t which time he had a calcium score of 2685.55 with a 6% annual analyzed plaque progression which dem onstrates plaque stability. He is currently without chest pain or palpitations or evidence of acute coronary syndrome. 6. Deep vein thrombosis prophylaxis. Sequential compression devices. 7. Disposition: Will admit to observation as I anticipate less than 2 midnights stay in the hospital . /[id number]/MODL
[2018-01-04] MEDS ORDERED: LORazepam 0.5 MG TAB PO PRN (20:23)
[2018-01-04] MEDS ORDERED: FUROSEMIDE 20 MG/2 ML VIAL IVP ONE (20:25)
--- NOTE | 2018-01-04 20:28 | CPEKG ---
Test Reason : OPEN Blood Pressure : / mmHG Vent. Rate : 058 BPM Atrial Rate : 077 BPM P-R Int : 137 ms QRS Dur : 080 ms QT Int : 482 ms P-R-T Axes : 077 048 059 degrees QTc Int : 474 ms AV block, complete (third degree) Paired ventricular premature complexes Confirmed by Raymon Thomas ([id number]) on 01/04/2018 8:27:56 PM Referred By: Confirmed By:Raymon Thomas
[2018-01-04] MEDS: LISINOPRIL 20 MG TAB PO SCH (20:54)
[2018-01-04] MEDS: amLODIPine BESYLATE 5 MG TAB PO SCH (20:55)
[2018-01-04] MEDS: DORZOLAMIDE 2% RTEYE SCH (21:13)
[2018-01-04] MEDS: OPTH RTEYE SCH (21:13)
[2018-01-05] MEDS ORDERED: D5W 1/2 NS 1,000 ML IV SCH
[2018-01-05 04:28] LABS: PLATELET COUNT 202 10^3/uL (150-400)
[2018-01-05] MEDS ORDERED: CHOLECALCIFEROL VIT D3 2,000 UNITS TAB/CAP PO SCH (08:00)
[2018-01-05] MEDS ORDERED: diphenhydrAMINE 25 MG CAP PO ONE (08:16)
[2018-01-05] MEDS ORDERED: ceFAZolin 2 GM/DEXTROSE 100 ML IV ONE (08:16)
[2018-01-05] MEDS ORDERED: NS 1,000 ML IV ONE (08:16)
[2018-01-05] MEDS ORDERED: DIAZEPAM 5 MG TAB PO ONE (08:16)
[2018-01-05] MEDS ORDERED: BACITRACIN IRRIGATION/NS 50,000 UNITS/1,000 ML BTL IRR ONE (08:16)
[2018-01-05] MEDS: OMEGA-3 FATTY ACIDS 1,000 MG CAP PO SCH (08:28)
[2018-01-05] MEDS: EZETIMIBE 10 MG TAB PO SCH (08:28)
[2018-01-05] MEDS: amLODIPine BESYLATE 5 MG TAB PO SCH (08:28)
[2018-01-05] MEDS: LISINOPRIL 20 MG TAB PO SCH (08:29)
[2018-01-05] MEDS: PANTOPRAZOLE SODIUM 40 MG TAB PO SCH (08:30)
[2018-01-05] MEDS: MULTIVITAMINS 1 EACH TAB PO SCH (08:30)
[2018-01-05] MEDS: OPTH RTEYE SCH ×2 (08:37→20:12)
[2018-01-05] MEDS: DORZOLAMIDE 2% RTEYE SCH ×2 (08:37→20:12)
--- NOTE | 2018-01-05 09:40 | PDCARPN ---
Cardiology Progress Note Chief Complaint: Fatigue and weakness with newly noted third degree AVB Assessment/Plan: Assessment: Patient is an 87 y/o male with history of CAD (by MSCT) with newly noted third degree AVB on both telemetry and ECG. Symptoms consistent with said diagnosis ( weakness, fatigue, some mental status changes). Patient awake and alert in the ER yesterday. Answered all questions appropriately. Blood pressure was in the hypertensive realm in the ER. No cardiovascular complaints this morning. Fair sleep (as good as could be imagined with slow heart rate and frequent vital assessments). No chest pains or pressure. I did call the patient's to inform her of pending pacer this morning. Plan: (1) PPM implant this morning Further recommendations after procedure has been performed. Subjective: No cardiovascular complaints Reviewed/Discussed With: family Objective: Vital Signs (8 Hrs) Temp Pulse Resp BP Pulse Ox 01/05/18 08:29 161/59 H 01/05/18 07:44 36.9 C 38 L 20 161/59 H 97 01/05/18 04:00 37.1 C 40 L 16 172/66 H 98 Intake/Output (24 Hrs) 01/04/18 01/05/18 01/06/18 05:59 05:59 05:59 Intake Total 300 Output Total 100 Balance 200 Intake: Oral (ml) 300 Output: Urine (ml) 100 Urinal 100 Other: Weight 63.2 kg Intake Quantity Yes Sufficient Number of Voids Toilet 5 Result Diagrams: 01/05/18 03:58 01/05/18 03:58 Telemetry: third degree AVB - Physical Exam Constitutional: WDWN, healthy appearing, no apparent distress Eyes: PERRL, EOMI Ears, Nose, Mouth, Throat: moist mucous membranes Cardiovascular: systolic murmur, other (bradycardia) Peripheral Pulses: 2+: dorsalis-pedis (R), dorsalis-pedis (L) Respiratory: clear to auscultate bilat, no crackles, no wheezes Gastrointestinal: normoactive bowel sounds Skin: no edema Musculoskeletal: no muscular tenderness Neurologic: AAOx3, CN II-XII grossly intact Psychiatric: cooperative, interactive, following commands ICD10 Worksheet Patient Problems: Problems Problem Status Onset Subarachnoid hemorrhage Acute Altered mental status Acute Third degree heart block Acute
--- NOTE | 2018-01-05 09:41 | PDPROPOC ---
Sedation Plan of Care Sedation Plan of Care: vital signs stable, mental status noted, patient educated of risks, benefits, alternatives, patient can tolerate sedation ASA Classification: ASA 2 Planned drugs: fentanyl, midazolam Mallampati Score: Class 2 Mallampati Reference Image: Patient passed 3-3-2 rule?: Yes
--- NOTE | 2018-01-05 09:47 | SOAPPROG ---
[facility] Progress Note Assessment/Plan: Assessment: 87 yo male who presented to the office yesterday with HR in the high 30s - 40s who was experiencing decreased exercise tolerance, fatigue, and weakness. EKG demonstrated complete heart block and he was sent to the ED for further eval. He was seen by cardiology on arrival who confirmed the arrhythmia and rec'd pacer placement today. Additionally, Andre has been experiencing worsened lower back pain with bilateral sciatica over the past couple of weeks. MRI with significantly worsened lumbar stenosis, foraminal narrowing with nerve impingement. Plan: Complete heart block- plan for pacer today per cardiology Hypertension- currently on CHRIS and CCB, will see how his pressures are following pacer placement and adjust meds as needed Lumbar stenosis with sciatica- plan to refer to neuro surgery as outpt once he is recovered from his pacer placement DVT prop- encourage ambulation, SCDs Dispo- likely home tomorrow 01/05/18 09:38 Subjective: Andre is resting in his chair today. Says he slept okay, eager to have pacer placement. Objective: Vital Signs Temp Pulse Resp BP Pulse Ox 36.9 C 38 L 20 161/59 H 97 01/05/18 07:44 01/05/18 07:44 01/05/18 07:44 01/05/18 08:29 01/05/18 07:44 Laboratory Results 01/05/18 03:58 01/05/18 03:58 01/04/18 01/05/18 01/06/18 05:59 05:59 05:59 Intake Total 300 Output Total 100 Balance 200 PT 14.4 SEC (12.0-15.0) 01/04/18 15:10 INR 1.10 (0.83-1.16) 01/04/18 15:10 Gen- alert, oriented Head- normocephalic, atraumatic Resp- LCTAB, no wheezing, rhonchi, rales CV- bradycardic, regular rhythm Extremities- no peripheral edema Skin- warm and dry ICD10 Worksheet Patient Problems: Problems Problem Status Onset Third degree heart block Acute Altered mental status Acute Subarachnoid hemorrhage Acute
[2018-01-05] MEDS ORDERED: fentaNYL 100 MCG/2 ML INJ ONE (10:37)
[2018-01-05] MEDS ORDERED: IOPAMIDOL (ISOVUE-300) 50 ML VIAL ONE (10:37)
[2018-01-05] MEDS ORDERED: LIDOCAINE 1% 300 MG/30 ML SDV ONE (10:37)
[2018-01-05] MEDS ORDERED: LIDO/EPI 1% **for epidural** 30 ML SDV ONE (10:38)
[2018-01-05] MEDS ORDERED: BUPIVACAINE 0.5% 30 ML SDV ONE (10:38)
[2018-01-05] MEDS ORDERED: MIDAZOLAM 2 MG/2 ML VIAL ONE (10:38)
--- NOTE | 2018-01-05 12:16 | SUROPNOTE ---
[facility] Operative Report - Surgery PERMANENT PACER IMPLANTATION PROCEDURE PERFORMED: Dual chamber PPM implant COMPLICATIONS: none ESTIMATED BLOOD LOSS: <20 cc SITE: LEFT/RIGHT subclavian vein access. INDICATION: Third degree AVB PROCEDURE: The risks, benefits, and alternative of the procedure were all discussed with the patient and the patient's family in detail at great length. Overall options and precautions of the pacemaker and indications were all discussed. They agreed to the pacemaker. The consent was signed and placed in the chart. The patient was taken to the Cardiac Catheterization Lab, where she was monitored throughout the whole procedure. The patient was sterilely prepped and draped in the usual manner for permanent pacemaker insertion. Using a lidocaine the area of the left subclavian vein and left pectodeltoid region was anesthetized locally. IV sedation, increments, and analgesics were given. Using a #18 gauge needle, the left subclavian vein access was cannulated without difficulty. A guidewire was then passed through the Cook needle and the Cook needle was then removed. The wire was secured in place with the hemostat. A second needle and cannulation was performed with a second guidewire was then passed through the Cook needle with removal of the Cook needle, and securing of the wire in place with the primary wire. Using a #10 and #15 scalpel blade, a 5 cm horizontal incision was made in the left pectoral deltoid region where the skin was dissected and blunted down into the pectoris major muscle fascia. The skin was then undermined used to make a pocket for the pacemaker. The guidewires were then tunneled through the pacer pocket. Cordis sheath was then inserted through the guidewire. The guidewire and dilator were removed. A 7F cordis sheath was used for insertion of the ventricular screw and steroid diluted lead under fluoroscopy. It was placed into the septum/apex. The cordis sheath was then split apart and removed and after the ventricular lead was placed in its appropriate position and good thresholds were obtained, the lead was then sutured in place with #1-0 silk suture to the pectoris major muscle. The second Cordis sheath was then inserted through a guidewire. The guidewire and dilator were removed. The 7F cordis sheath used for the insertion of the atrial screw and steroid diluted lead under fluoroscopy. It was placed into the right atrium. The cordis sheath was then split apart and revoved and after the atrial lead was placed in its appropriate position and good thresholds were obtained, the lead was then sutured in place with #1-0 silk suture to the pectoris major muscle. The lead was then connected on pulse generator. The pocket was then irrigated and cleansed. Pulse generator and the wire was then inserted into the pocket, and sutured into position. The deep pocket (initial suture) was then closed with #2-0 suture. An intermediate, running suture (#3-0 ) was placed, and finally, the skin was closed with #4-0 sutures using a subcuticular uninterrupted technique. The area was then cleansed and dried. Steri-Strips and pressure dressing was then applied. The patient tolerated the procedure well. There were no complications. Settings on the pacemaker: DDD at LRL to 60 bpm IMPLANT DEVICE: [employer], [employer] MRI VENTRICLE LEAD: M#: Tendril STS [id number] S#: [id number] ATRIAL LEAD: M#: Tendril STS [id number] S#: [id number] RASHID PARAMETER SETTINGS ARE FOLLOWS: LRL: 60 URL: 120 STIMULATION THRESHOLDS: Atrial lead Capture: 0.4V @ 0.5 ms, 0.8 mA; sensin.7 mV, 0.5 V/s, IMP: 450 ohms Ventricular lead Capture: 0.4V @ 0.5 ms, 0.5 mA; sensing 5.4 mV, 1.4 V/s, IMP: 765 ohms The patient tolerated the procedure well. There was no complications. The patient went to recovery in stable condition. Chest x-ray will be ordered. Thank you for allowing me to participate in her care. If you have any questions or concerns, please feel free to contact
--- NOTE | 2018-01-05 16:05 | ASMTCMCOM ---
CM Note CM Note Notes: 01/05/2018 Case Management Note Pt admitted for 3rd degree heart block. Pacemaker today. Discussed with RN. PT evals pending. Will meet w/pt and tomorrow. Case Management d/c poc: to be determined. Case Management to follow. Date Signed: 01/05/2018 04:04 PM Electronically Signed By:Calista Haile RN
[2018-01-05] MEDS ORDERED: hydrALAZINE 20 MG/ML VIAL IVP PRN (17:28)
[2018-01-05] MEDS ORDERED: SIMVASTATIN PO SCH (18:00)
[2018-01-05] MEDS ORDERED: EZETIMIBE PO SCH (18:00)
[2018-01-05] MEDS ORDERED: FERROUS SULFATE 325 MG TAB PO SCH (18:00)
[2018-01-05] MEDS ORDERED: valACYclovir 500 MG TAB PO SCH ×2 (18:30→19:00)
--- NOTE | 2018-01-05 19:11 | PDMN ---
Medical Necessity Medical necessity: [facility] Cardiology GR yo w/ new 3rd degree/complete heart block, HR 30s-40s, cardiology consult, urgent PPM placement, s/sx include weakness, fatigue, some AMS, HTN cont 150s-170s SBP, Pt will need additional MN for ongoing monitoring and treatment. Change to IP status 01/05/18@1756 per MD order
[2018-01-06 04:40] LABS: PLATELET COUNT 181 10^3/uL (150-400)
[2018-01-06] MEDS ORDERED: CHOLECALCIFEROL VIT D3 2,000 UNITS TAB/CAP PO SCH (08:00)
[2018-01-06] MEDS: OMEGA-3 FATTY ACIDS 1,000 MG CAP PO SCH (08:12)
[2018-01-06] MEDS: amLODIPine BESYLATE 5 MG TAB PO SCH (08:13)
[2018-01-06] MEDS: LISINOPRIL 20 MG TAB PO SCH (08:13)
[2018-01-06] MEDS: PANTOPRAZOLE SODIUM 40 MG TAB PO SCH (08:13)
[2018-01-06] MEDS: MULTIVITAMINS 1 EACH TAB PO SCH (08:13)
[2018-01-06] MEDS: EZETIMIBE 10 MG TAB PO SCH (08:13)
[2018-01-06] MEDS: OPTH RTEYE SCH (08:14)
[2018-01-06] MEDS: DORZOLAMIDE 2% RTEYE SCH (08:14)
--- NOTE | 2018-01-06 09:11 | SOAPPROG ---
[facility] Progress Note Assessment/Plan: Assessment: Plan: 01/06/18 09:09 Complete heart block: s/p pacemaker placement yesterday. Feeling better. CXR done this morning, result pending. Anticipate d/c home today if ok with cardiology. PT has recommended home care, mainly for safety assessment, post- operative care following his pacemaker placement. OT evaluation pending. Hypertension: BP remains elevated. Will increase lisinopril. Lumbar stenosis: worsening stenosis on MRI but he denies significantly worsening pain. States he is woken with pain at night twice a week and that tylenol takes care of it. Dispo: likely home today pending cardiology, OT, PT recommendations. 01/06/18 09:14 Subjective: Feeling better. Breathing more comfortably. Mild back pain, nothing more than usual. Rash better. Objective: Vital Signs Temp Pulse Resp BP Pulse Ox 37.0 C 69 16 175/79 H 92 01/06/18 08:18 01/06/18 08:18 01/06/18 08:18 01/06/18 08:18 01/06/18 08:18 Laboratory Results 01/06/18 04:00 01/06/18 04:00 01/05/18 01/06/18 01/07/18 05:59 05:59 05:59 Intake Total 550 Balance 550 PT 14.4 SEC (12.0-15.0) 01/04/18 15:10 INR 1.10 (0.83-1.16) 01/04/18 15:10 General: sitting up in chair, awake, alert Neck: no masses, adenopathy Lungs: clear CV: RRR, no murmur Abdomen: +bowel sounds, soft, NT Skin: minimal rash L chest. Dressing in place over pacer Extremities: no edema ICD10 Worksheet Patient Problems: Problems Problem Status Onset Third degree heart block Acute Altered mental status Acute Subarachnoid hemorrhage Acute
[2018-01-06] MEDS ORDERED: LISINOPRIL 20 MG TAB PO SCH (09:18)
[2018-01-06] MEDS ORDERED: LISINOPRIL 20 MG TAB PO ONE (10:30)
--- NOTE | 2018-01-06 11:12 | PDCARPN ---
Cardiology Progress Note Chief Complaint: 3rd deg AVB Assessment/Plan: Assessment: 87 y/o male with history of CAD (by MSCT), htn, mod AR, mild-mod MR, mild PHTN , who presented to PCP office for fatigue/weakness and was found to be in newly noted third degree AVB on both telemetry and ECG. #. 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 htn: BP appears to be quite elevated Dr. Farmer modifying therapies #. VHD: may maintain routine cardiac follow up in outpatient setting Plan: - OK to discharge from cardiac perspective 01/06/18 11:06 Subjective: No significant pain. Feels well. Reviewed/Discussed With: other (Dr. Farmer) Time Spent with Patient: greater than 25 minutes Time Spent with Patient: Greater than 25 minutes spent on this patients care, greater than 50% of time spent counseling, educating, and coordinating care regarding the above mentioned plan. Objective: Vital Signs (8 Hrs) Temp Pulse Resp BP Pulse Ox 01/06/18 09:49 74 11 L 181/84 H 92 01/06/18 08:18 98.6 F 69 16 175/79 H 92 01/06/18 08:13 175/79 H 01/06/18 04:00 97.9 F 63 20 159/83 H 93 Intake/Output (24 Hrs) 01/05/18 01/06/18 01/07/18 05:59 05:59 05:59 Intake Total 550 Balance 550 Intake: Oral (ml) 550 Other: Intake Quantity Yes Sufficient Number of Voids Toilet 1 1 Number of Stools Toilet 1 Result Diagrams: 01/06/18 04:00 01/06/18 04:00 EKG: SR with with V-paced and occasional A-paced - Physical Exam Constitutional: no apparent distress Eyes: PERRL, anicteric sclera Ears, Nose, Mouth, Throat: other (YOMBA SHOSHONE) Cardiovascular: regular rate and rhythm Respiratory: clear to auscultate bilat Gastrointestinal: normoactive bowel sounds Neurologic: AAOx3 Psychiatric: cooperative, interactive ICD10 Worksheet Patient Problems: Problems Problem Status Onset Third degree heart block Acute Altered mental status Acute Subarachnoid hemorrhage Acute
[2018-01-06 11:56] VITALS: BP 148/78
--- NOTE | 2018-01-06 13:22 | ASMTCMCOM ---
CM Note CM Note Notes: 01/06/2018 Case Management Note Met w/pt and to discuss d/c plan. PT and OT recommending home care. Pt in agreement. Pt chose [facility]. Faxed referral. [facility] accepted pt. Case Management d/c poc: [facility] PT OT RN Date Signed: 01/06/2018 01:21 PM Electronically Signed By:Calista Haile RN
--- NOTE | 2018-01-06 13:28 | PDIAF ---
- Diagnosis Code Status: Full Code - Medication Management Discharge Medications: Medications to Continue on Transfer Ezetimibe/Simvastatin [Vytorin 10-40 mg Tablet] 1 each PO DAILY@18 12/05/16 [ Last Taken 01/03/18] Dorzolamide 2% [Trusopt 2% (*)] 1 drops RTEYE BID opht.btl 12/06/16 [Last Taken 01/04/18 09:00] Cholecalciferol Vit D3 [Vitamin D3 (*)] 2,000 units PO SUTUTHSA 01/04/18 [Last Taken 01/03/18] Cholecalciferol Vit D3 [Vitamin D3 2000 units tab (OTC)] 4,000 units PO MWF [Last Taken 01/04/18] Ferrous Sulfate [Ferrous Sulf 325 MG (*)] 325 mg PO DAILY@18 01/04/18 [Last Taken 01/03/18] Herbals/Supplements -Info Only 1 ea PO DAILY 01/04/18 [Last Taken Unknown] Lansoprazole [Prevacid] 15 mg PO DAILY 01/04/18 [Last Taken 01/04/18] Multivitamins [Multivitamin (*)] 1 each PO DAILY 01/04/18 [Last Taken 01/04/18] [place]-3 Fatty Acids [Fish Oil 1000 mg (*)] 2,000 mg PO DAILY 01/04/18 [Last Taken 01/04/18] Ezetimibe [Zetia 10 MG (*)] 10 mg PO DAILY tab 01/06/18 [Last Taken Unknown] Lisinopril [Zestril 20 mg (*)] 40 mg PO DAILY 30 Days #30 tab 01/06/18 [Last Taken Unknown] amLODIPine BESYLATE [Norvasc 5 mg (*)] 5 mg PO DAILY tab 01/06/18 [Last Taken Unknown] Discharge Medications: Refer to the Discharge Home Medication list for PRN reason. - Orders Services needed: Home Care, Physical Therapy, Occupational Therapy Home Care Face to Face: I certify that this patient was under my care and that I had the required [id number] encounter meeting the encounter requirements on the discharge day. My findings support the fact that the patient is homebound as defined in Home Care Face to Face Continued: CMS Chapter 7 Medicare Benefits Manual 30.1.1 , The condition of the patient is such that there exists a normal inability to leave home and consequently, leaving home would require a considerable and taxing effort. Additional Instructions: Left Arm precautions for 10 days: 1) no lifting arm above head or putting arm behind back 2) wear sling continuously for at least 48 hours and then you could wear it only for sleep 3) do not saturate the dressing site for 5 days 4) no lifting greater than 10 lbs [facility] will call you to set up pacer check and 1-month followup. - Follow Up Care Current Providers and Referrals: Mitchell Campos MD [Primary Care Provider] - As per Instructions
--- NOTE | 2018-01-06 13:40 | ASDISCHSUM ---
Discharge Information Plan Status:Home with Home Health Medically Cleared to Leave:01/06/2018 Discharge Date:01/06/2018 CM D/C Disposition:Home Health Service ADT D/C Disposition:Home Health Service Projected Discharge Date:01/06/2018 11:00 AM Transportation at D/C:Self Discharge Delay Reason: Follow-Up Date:01/06/2018 11:00 AM Discharge Slot: Final Diagnosis: Placement Information Referral Type:*Home Health Care Services Referral ID:[id number] Provider Name:[facility] (formerly [facility]) [address] Address 2: City:[place] Selection Factors: State:[place] Patient Contact Information Contact Name:CARMEN Relationship: Address:[address] Work Phone: [facility]:[place] Alternate Phone: State/Zip Code:[place] [address] Email: Financial Information Financial Class:Medicare Primary Plan Desc:MEDICARE INPATIENT Primary Plan Number:[id number] Secondary Plan Desc:[facility] Secondary Plan Number:[id number] Assessment Information [facility] CM Progress Note CM Note CM Note Notes: 01/05/2018 Case Management Note Pt admitted for 3rd degree heart block. Pacemaker today. Discussed with RN. PT gamal pending. Will meet w/pt and tomorrow. Case Management d/c poc: to be determined. Case Management to follow. Date Signed: 01/05/2018 04:04 PM Electronically Signed By:Calista Haile RN BC CM Progress Note CM Note CM Note Notes: 01/06/2018 Case Management Note Met w/pt and to discuss d/c plan. PT and OT recommending home care. Pt in agreement. Pt chose [facility]. Faxed referral. [facility] accepted pt. Case Management d/c poc: [facility] PT OT RN Date Signed: 01/06/2018 01:21 PM Electronically Signed By:Calista Haile RN Case Management Discharge Plan Note Case Management Discharge Discharge Order Complete? Answers: Yes Patient to Obtain Answers: via Family Medications Transportation Arranged Answers: Family/Friends Faxed Final Orders Answers: Yes Notes: to [facility] Agency/Facility Transfer Answers: Yes Notes: to [facility] Report Printed & Faxed to Receiving Agency Family Notified Answers: Yes Notes: in room Discharge Comments Notes: 01/06/2018 Case Management Note Faxed final orders to [facility]. Date Signed: 01/06/2018 01:39 PM Electronically Signed By:Calista Haile RN Intervention Information Intervention Type:*Incorrect Registration Date of Service:01/05/2018 10:18 AM Patient Type:Inpatient Staff Member:Sujey Key Hours: Discipline: Severity: Comment:
--- NOTE | 2018-01-07 11:55 | CPEKG ---
Test Reason : OPEN Blood Pressure : / mmHG Vent. Rate : 062 BPM Atrial Rate : 060 BPM P-R Int : 158 ms QRS Dur : 146 ms QT Int : 491 ms P-R-T Axes : 242 -47 083 degrees QTc Int : 499 ms Atrial-ventricular dual-paced complexes Dual chamber pacing is new in comparison to prior (third degree AVB) Confirmed by Kwesi Knapp ([id number]) on 01/07/2018 11:55:33 AM Referred By: Confirmed By:Kwesi Knapp
--- NOTE | 2018-01-07 12:16 | CPEKG ---
Test Reason : OPEN Blood Pressure : / mmHG Vent. Rate : 068 BPM Atrial Rate : 065 BPM P-R Int : 188 ms QRS Dur : 139 ms QT Int : 461 ms P-R-T Axes : -24 -05 082 degrees QTc Int : 491 ms Atrial-sensed ventricular-paced complexes Confirmed by Kwesi Knapp ([id number]) on 01/07/2018 12:16:34 PM Referred By: Confirmed By:Kwesi Knapp
--- NOTE | 2018-01-09 15:13 | GDS ---
DISCHARGE DIAGNOSES: Complete atrioventricular block, hypertension, lumbar stenosis. CONSULTS: Cardiology, Kwesi Knapp MD HOSPITAL COURSE: The patient is an 87-year-old male with a history of hypertension, who was admitted through the emergency department after being evaluated in his PCP's office for fatigue and difficulty climbing stairs. On EKG in the office, he was noted to be in 3rd-degree AV block and was advised to go to the ED. In the emergency department, followup EKG confirmed 3rd-degree heart block with a heart rate in the upper 30s. His troponin was negative, and CT of his head was also negative. His blood pressure was elevated. A temporary transcutaneous pacer was placed, and he was seen in the emergency department by Dr. Knapp. He was scheduled for pacemaker placement the following morning. Because of complaints of low back pain and radicular symptoms, MRIs of the lumbar and thoracic spine were obtained. Lumbar MRI showed progressive stenosis on multiple levels. Thoracic MRI showed degenerative disk changes but no significant stenosis. The pacemaker placement went well. His blood pressure remained elevated. Amlodipine 5 mg daily was added, and his lisinopril was increased from 20 mg daily to 40 mg daily with good response. He opted not to do any further intervention regarding his lumbar stenosis. He was discharged to home in good condition with home health followup. NEW MEDICATIONS ON DISCHARGE: Lisinopril 40 mg daily, amlodipine 5 mg daily. FOLLOWUP: He will follow up as planned with Cardiology. /[id number]/MODL MTDD
== END 2018-01-06 14:56 | disposition home health service (06) | DRG 244 ==
LOC: F2W 16:08 → INTOOBSV 16:08 → F2W 16:40 → OBSVTOIN 01-05 17:56
PROVIDERS: ADMIT Internal Medicine; ATTEND Internal Medicine
PROC: 0JH606Z Insertion of Pacemaker, Dual Chamber into Chest Subcutaneous Tissue and Fascia, Open Approach (ICD-10-PCS; principal; 2018-01-05)
PROC: 02H63JZ Insertion of Pacemaker Lead into Right Atrium, Percutaneous Approach (ICD-10-PCS; principal; 2018-01-05)
PROC: 02HK3JZ Insertion of Pacemaker Lead into Right Ventricle, Percutaneous Approach (ICD-10-PCS; principal; 2018-01-05)
DX: I44.2 Atrioventricular block, complete (principal); I10 Essential (primary) hypertension; M48.061 Spinal stenosis, lumbar region without neurogenic claudication; R35.0 Frequency of micturition
CPT/HCPCS: 84484-PO; 97116-GP; 97161-GP; 97166-GO; C1785; C1898; G0378; G8978-GP-CI; G8978-GP-CJ; G8979-GP-CI; G8980-GP-CI; G8987-GO-CI; G8988-GO-CI; G8989-GO-CI; J0360; J0690; J1940; J2250; J3010; Q9967

== ENCOUNTER → 2018-05-27 | Outpatient (CLI) | payer OTHER | LOC: FIMAGING 15:06 | PROVIDERS: ATTEND Internal Medicine Cardiovascular Disease | DX: Z95.0 Presence of cardiac pacemaker (principal); I10 Essential (primary) hypertension; E78.5 Hyperlipidemia, unspecified; J43.9 Emphysema, unspecified ==